=== PATIENT | female | born 2000 | race Two or more races ===

== ENCOUNTER 2021-08-03 11:14 | Inpatient (IN) | payer OTHER ==
[~2021-08-03] VITALS: Ht 149.9 cm; Wt 79.4 kg
[2021-08-03] MEDS ORDERED: NALOXONE HCL 0.4 MG/ML 1ML VIAL IM PRN (13:00)
[2021-08-03] MEDS ORDERED: LIDOCAINE HCL 1% 20ML VIAL (Pyxis) INJ INFIL SCH (13:00)
[2021-08-03] MEDS: LACTATED RINGERS 1,000 ML IV SCH ×2 (13:00→18:32)
[2021-08-03 13:34] LABS: BASOPHILS % 0.4 % (0.0-2.0); EOSINOPHILS % 0.5 % (0.0-5.0); HEMATOCRIT. 36.8 % (36.0-48.0); HEMOGLOBIN. 12.7 g/dL (12.0-16.0); LYMPHOCYTES % 18.7 % (20.0-50.0); MEAN CORPUSCULAR HEMOGLOBIN 32.9 pg (28.0-32.0); MEAN CORPUSCULAR VOLUME 95.7 fL (81.0-99.0); MEAN PLATELET VOLUME 10.5 fl (7.4-10.4); MONOCYTES % 10.9 % (2.0-8.0); NEUTROPHILS % 69.5 % (40.0-76.0); PLATELET 169 x1000/uL (130-400); RED BLOOD CELL COUNT 3.84 mill/uL (4.2-5.4); RED CELL DISTRIBUTION WIDTH 13.9 % (11.6-14.6)
[2021-08-03 13:39] LABS: INR 0.9; PARTIAL THROMBOPLASTIN TIME 27.5 sec (23.4-31.0); PROTHROMBIN TIME 9.7 sec (9.6-11.0)
[2021-08-03 13:49] LABS: CLARITY URINE CLOUDY (CLEAR); COLOR URINE DARK YELLOW (YELLOW); KETONES URINE 1+ (NEGATIVE); LEUKOCYTE ESTERASE URINE 1+ (NEGATIVE); NITRITE URINE NEGATIVE (NEGATIVE); OCCULT BLOOD URINE NEGATIVE (NEGATIVE); PROTEIN URINE TRACE (NEGATIVE); SPECIFIC GRAVITY URINE 1.024 (1.005-1.030)
[2021-08-03] MEDS ORDERED: ROPIVACAINE HCL/PF EPIDURAL 200 ML EPI SCH (14:00)
[2021-08-03 14:02] LABS: HEPATITIS B SURFACE ANTIGEN NEGATIVE
[2021-08-03] MEDS: DEXT 5%/LR + PITOCIN 20UNITS/L 1,000 ML IV SCH (14:10)
[2021-08-03 14:45] LABS: *BARBITURATES SCREEN URINE NEGATIVE (NEGATIVE); *BENZODIAZEPINES SCREEN URINE NEGATIVE (NEGATIVE); *COCAINE SCREEN URINE NEGATIVE (NEGATIVE); CANNABINOID URINE SCREEN NEGATIVE (NEGATIVE)
[2021-08-03 14:47] LABS: *AMPHETAMINES SCREEN URINE NEGATIVE (NEGATIVE)
[2021-08-03 14:48] LABS: METHADONE URINE SCREEN NEGATIVE (NEGATIVE); OPIATES URINE SCREEN NEGATIVE (NEGATIVE)
[2021-08-03 14:51] LABS: PHENCYCLIDINE URINE SCREEN NEGATIVE (NEGATIVE)
[2021-08-03] MEDS: BUTORPHANOL TARTRATE 2 MG/ML VIAL IV PRN (21:45)
[2021-08-04] MEDS: BUTORPHANOL TARTRATE 2 MG/ML VIAL IV PRN (01:05)
[2021-08-04] MEDS ORDERED: LIDOCAINE HCL 2%/EPINEPHRINE 1:100,000 20 ML VIAL INFIL ONE (05:00)
[2021-08-04] MEDS: LACTATED RINGERS 1,000 ML IV SCH ×3 (05:31→20:34)
[2021-08-04] MEDS: DEXT 5%/LR + PITOCIN 20UNITS/L 1,000 ML IV SCH (11:27)
[2021-08-04] MEDS ORDERED: ROPIVACAINE HCL/PF EPIDURAL 200 ML EPI SCH (20:15)
[2021-08-05] MEDS: LACTATED RINGERS 1,000 ML IV SCH (02:07)
[2021-08-05] MEDS ORDERED: LIDOCAINE HCL 2%/EPINEPHRINE 1:100,000 20 ML VIAL INFIL ONE (07:00)
[2021-08-05] MEDS ORDERED: METHYLERGONOVINE MALEATE 0.2 MG/ML ONE (07:00)
[2021-08-05] MEDS ORDERED: CITRIC ACID/SODIUM CITRATE SOLN 30ML UDC PO SCH (07:15)
[2021-08-05] MEDS ORDERED: TRANEXAMIC ACID 1,000 MG/10 ML IV ONE (07:15)
[2021-08-05] MEDS ORDERED: TRANEXAMIC ACID 1,000 MG in SODIUM CHLORIDE 0.9% 100 ML IV SCH (07:15)
[2021-08-05] MEDS ORDERED: FENTANYL CITRATE/PF 50MCG/ML 2ML VIAL ONE (07:27)
[2021-08-05] MEDS ORDERED: MORPHINE SULFATE/PF 1MG/ML 10ML AMP ONE (07:27)
[2021-08-05] MEDS ORDERED: CEFAZOLIN SODIUM 1000MG/VIAL ONE (07:46)
[2021-08-05] MEDS ORDERED: OXYTOCIN 10 UNITS/ML 1ML ONE (07:50)
[2021-08-05] MEDS ORDERED: DIPHENHYDRAMINE 50MG/ML VIAL ONE (08:10)
[2021-08-05] MEDS ORDERED: KETOROLAC 60MG/2ML VIAL IM ONE (08:17)
[2021-08-05] MEDS ORDERED: DIPHENHYDRAMINE 25MG CAPSULE PO PRN (08:30)
[2021-08-05] MEDS ORDERED: IBUPROFEN 400MG TABLET PO PRN (08:30)
[2021-08-05] MEDS ORDERED: RHO(D) IMMUNE GLOBULIN 300 MCG/SYR IM PRN (08:30)
[2021-08-05] MEDS ORDERED: BISACODYL 10MG SUPP PR PRN (08:30)
[2021-08-05] MEDS ORDERED: HYDROCODONE/ACETAMINOPHEN 5/325MG TABLET PO PRN (08:30)
[2021-08-05] MEDS ORDERED: DEXT 5%/LR + PITOCIN 20UNITS/L 1,000 ML IV SCH (08:30)
[2021-08-05] MEDS ORDERED: LANOLIN OINT 7GM TUBE TOP PRN (08:30)
[2021-08-05] MEDS ORDERED: HEMORRHOIDAL SUPP PR PRN (08:30)
[2021-08-05] MEDS ORDERED: ONDANSETRON HCL 4MG/2ML INJ IV PRN (08:30)
[2021-08-05] MEDS ORDERED: NALOXONE HCL 0.4 MG/ML 1ML VIAL IV PRN (09:30)
[2021-08-05] MEDS ORDERED: BUTORPHANOL TARTRATE 2 MG/ML VIAL IV PRN (09:30)
[2021-08-05] MEDS ORDERED: DIPHENHYDRAMINE 50MG/ML VIAL IV PRN (09:30)
[2021-08-05] MEDS: DEXT 5%/LR + PITOCIN 20UNITS/L 1,000 ML IV SCH (09:41)
[2021-08-05 11:30] VITALS: BP 112/64
[2021-08-05 12:00] VITALS: BP 109/62
[2021-08-05] MEDS: KETOROLAC 30MG/ML VIAL IV SCH ×2 (15:16→22:36)
[2021-08-05 16:00] VITALS: BP 138/83
[2021-08-05 20:10] VITALS: BP 131/79
[2021-08-05] MEDS: DOCUSATE SODIUM 100MG CAPSULE PO SCH (21:00)
[2021-08-05] MEDS: MAGNESIUM/ALUMINUM HYDROXIDE/SIMETHICONE 30ML UDC PO SCH (21:00)
[2021-08-05] MEDS: ASCORBIC ACID 500 MG TABLET PO SCH (21:00)
[2021-08-05] MEDS: SIMETHICONE 80MG TABLET CHEW PO SCH (21:00)
[2021-08-05] MEDS: FAMOTIDINE 20MG TABLET PO SCH (21:00)
[2021-08-06] VITALS: BP 132/80
[2021-08-06 04:00] VITALS: BP 112/63
[2021-08-06] MEDS ORDERED: KETOROLAC 30MG/ML VIAL IV SCH (04:30)
[2021-08-06] MEDS: IBUPROFEN 800MG TABLET PO PRN ×3 (05:38→20:34)
[2021-08-06] MEDS: SIMETHICONE 80MG TABLET CHEW PO SCH ×6 (06:05→20:34)
[2021-08-06] MEDS: MAGNESIUM/ALUMINUM HYDROXIDE/SIMETHICONE 30ML UDC PO SCH ×6 (06:06→20:33)
[2021-08-06 07:24] LABS: BASOPHILS % 0.2 % (0.0-2.0); EOSINOPHILS % 0.5 % (0.0-5.0); HEMATOCRIT. 37.3 % (36.0-48.0); HEMOGLOBIN. 12.6 g/dL (12.0-16.0); LYMPHOCYTES % 10.6 % (20.0-50.0); MEAN CORPUSCULAR HEMOGLOBIN 31.9 pg (28.0-32.0); MEAN CORPUSCULAR VOLUME 94.8 fL (81.0-99.0); MEAN PLATELET VOLUME 9.9 fl (7.4-10.4); MONOCYTES % 4.9 % (2.0-8.0); NEUTROPHILS % 83.8 % (40.0-76.0); PLATELET 159 x1000/uL (130-400); RED BLOOD CELL COUNT 3.94 mill/uL (4.2-5.4); RED CELL DISTRIBUTION WIDTH 13.7 % (11.6-14.6)
[2021-08-06 07:35] VITALS: BP 108/55
[2021-08-06] MEDS: FERROUS SULFATE 325MG TABLET PO SCH ×3 (08:43→18:27)
[2021-08-06] MEDS: ZINC SULFATE 220 MG ( 50 ) CAPSULE PO SCH (08:43)
[2021-08-06] MEDS: ASCORBIC ACID 500 MG TABLET PO SCH ×2 (08:43→20:34)
[2021-08-06] MEDS: FAMOTIDINE 20MG TABLET PO SCH ×2 (08:44→20:34)
[2021-08-06] MEDS: PRENATAL VIT/FE FUMARATE/FA TABLET PO SCH (08:44)
[2021-08-06] MEDS ORDERED: ACETAMINOPHEN 325MG TABLET PO PRN (08:45)
[2021-08-06 16:00] VITALS: BP 108/67
[2021-08-06 19:30] VITALS: BP 116/60
[2021-08-06] MEDS: DOCUSATE SODIUM 100MG CAPSULE PO SCH (20:34)
[2021-08-07] MEDS: IBUPROFEN 800MG TABLET PO PRN (03:18)
[2021-08-07 04:00] VITALS: BP 110/63
[2021-08-07 06:52] LABS: HEMOGLOBIN 11.3 g/dL (12.0-16.0); MEAN CORPUSCULAR HEMOGLOBIN 31.7 pg (28.0-32.0); MEAN CORPUSCULAR VOLUME 95.1 fL (81.0-99.0); PLATELET 153 x1000/uL (130-400); RED BLOOD CELL COUNT 3.57 mill/uL (4.2-5.4); RED CELL DISTRIBUTION WIDTH 13.5 % (11.6-14.6)
[2021-08-07] MEDS ORDERED: PREN1TAB23 MT (07:30)
[2021-08-07] MEDS ORDERED: IBUP-2030 MT (07:30)
[2021-08-07] MEDS ORDERED: FERR325T6 MT (07:30)
[2021-08-07 08:00] VITALS: BP 112/66
[2021-08-07] MEDS: FERROUS SULFATE 325MG TABLET PO SCH (08:39)
[2021-08-07] MEDS: MAGNESIUM/ALUMINUM HYDROXIDE/SIMETHICONE 30ML UDC PO SCH (08:39)
[2021-08-07] MEDS: ASCORBIC ACID 500 MG TABLET PO SCH (08:39)
[2021-08-07] MEDS: ZINC SULFATE 220 MG ( 50 ) CAPSULE PO SCH (08:39)
[2021-08-07] MEDS: FAMOTIDINE 20MG TABLET PO SCH (08:39)
[2021-08-07] MEDS: SIMETHICONE 80MG TABLET CHEW PO SCH (08:40)
[2021-08-07] MEDS: PRENATAL VIT/FE FUMARATE/FA TABLET PO SCH (08:41)
== END 2021-08-07 11:41 | disposition home or self-care (01) | DRG 540 ==
LOC: 8 EST LDRP 11:14 → OBSVTOIN 11:14 → 8 EST LDRP 08-04 00:26
PROVIDERS: ADMIT Obstetrics & Gynecology; ATTEND Obstetrics & Gynecology
PROC: 10D00Z1 Extraction of Products of Conception, Low, Open Approach (ICD-10-PCS; principal; 2021-08-07)
DX: O62.2 Other uterine inertia (principal); U07.1 COVID-19; O98.52 Other viral diseases complicating childbirth; Z3A.40 40 weeks gestation of pregnancy; Z37.0 Single live birth
CPT/HCPCS: 36415; 76805; 76818; 80305; 81003; 82652; 85025; 85027; 86592; 86703; 86762; 86850; 86900; 87340; 87426; 88307; 99281; G0378; J0595; J0690; J1200; J1885; J2210; J2274; J2590; J2795; J3010; J3490; J7050; J7120; U0003; U0005; A4315